=== PATIENT | male | born 1995 | race African-American/Black ===

== ENCOUNTER 2023-06-02 22:16 | Emergency (ER) | payer OTHER ==
[2023-06-02 22:28] VITALS: BMI 35.1
[2023-06-02] MEDS ORDERED: ONDANSETRON 4 MG/2 ML VIAL IVPUSH ONE (22:58)
[2023-06-02] MEDS ORDERED: FAMOTIDINE 20 MG/50 ML IVPB 20 MG/50 ML MG IVPB ONE ×2 (22:58→23:13)
[2023-06-02] MEDS ORDERED: MAG HYDROX/AL HYDROX/SIMETH 30 ML UNIT-DOSE CUP PO ONE (22:58)
[2023-06-02] MEDS ORDERED: ONDANSETRON 4 MG/2 ML VIAL ONE (23:13)
[2023-06-02] MEDS ORDERED: MAG HYDROX/AL HYDROX/SIMETH 30 ML UNIT-DOSE CUP ONE (23:13)
[2023-06-02 23:54] LABS: EOS % 3.4 % (0-4.5); HEMATOCRIT 40.4 % (35.4-49); HEMOGLOBIN 12.5 GM/dL (11.7-16.9); LYMPH % 36.8 % (8-40); MCH 23.2 pg (25.7-33.7); MCHC 30.9 g/dl (32.0-35.9); MEAN CELL VOLUME 75.1 fl (80-96); MEAN PLT VOLUME 9.2 fl (7.5-11.1); MONO % 11.3 % (3.8-10.2); NEUT % 47.5 % (42.8-82.8); PLATELET COUNT 263 10^3/uL (134-434); RBC 5.39 M/mm3 (4.00-5.60); RDW 13.6 % (11.9-15.9); WHITE BLOOD COUNT 7.7 K/mm3 (4.0-10.0)
[2023-06-03 00:13] LABS: POTASSIUM 4.4 mmol/L (3.5-5.1)
[2023-06-03 00:16] LABS: CALCIUM 8.5 mg/dL (8.5-10.1)
[2023-06-03 00:17] LABS: ALBUMIN 3.5 g/dl (3.4-5.0); BLOOD UREA NITROGEN 15.8 mg/dL (7-18)
[2023-06-03 00:21] LABS: BILIRUBIN,TOTAL 0.4 mg/dL (0.2-1)
[2023-06-03 00:22] LABS: TOT PROT 7.2 g/dl (6.4-8.2)
[2023-06-03 02:14] VITALS: BP 113/57; PULSE 69; RESP 14; TEMP 98.7
== END 2023-06-03 03:25 | disposition home or self-care (01) ==
LOC: JER 22:16
PROC: 3E033GC Introduction of Other Therapeutic Substance into Peripheral Vein, Percutaneous Approach (ICD-10-PCS; principal; 2023-06-02)
PROC: 3E033GC Introduction of Other Therapeutic Substance into Peripheral Vein, Percutaneous Approach (ICD-10-PCS; 2023-06-02)
DX: K92.1 Melena (principal); R10.13 Epigastric pain; R19.7 Diarrhea, unspecified; R35.0 Frequency of micturition; R11.0 Nausea; K52.9 Noninfective gastroenteritis and colitis, unspecified
CPT/HCPCS: 36415; 74177-TC; 80053; 82272; 83690; 85025; 99285-25; Q9967